=== PATIENT | female | born 1940 | race Caucasian/White ===

== ENCOUNTER 2016-10-15 14:06 | Emergency (ER) | payer MEDICARE ==
[~2016-10-15] VITALS: Ht 154.9 cm; Wt 91.8 kg
[~2016-10-15 14:06] MED LIST: CALC600T12 PO; CHOL100045 PO; DIGO125T73 PO; FENT1PAT6 TOPICAL; FENT1PAT7 TOPICAL; FURO40TA4 PO; MAGN250T29 PO; MULT-1018 PO; POTA-62 PO; TRAZ-118 PO; VENL-57 PO; VERA360C2 PO; WARF5TAB7 PO
[2016-10-15 14:10] VITALS: BP 146/77; PULSE 75; RESP 22; O2SAT 97
--- NOTE | 2016-10-15 15:11 | DRSVH ---
PROCEDURE: X-RAY CHEST, TWO VIEWS ([id number]) INDICATIONS: dyspnea TECHNIQUE: 2 views of the chest were acquired. COMPARISON: [facility], CT, CT CHEST ABD PELVIS W CON, 04/26/2016, 11:38. [facility], CR, XR CHEST 1VW (PORTABLE), 10/24/2015, 18:44. FINDINGS: Surgical changes and devices: The cardiac pacer/defibrillator apparatus is evident overlying the left chest, grossly unchanged. Median sternotomy changes are again noted. A gastric band is evident at the gastroesophageal junction. Lungs and pleura: The aeration of the lungs are similar to the previous exam. There is no focal cons olidation, effusion, or pneumothorax. There may be minimal scar versus atelectasis within the lung b ases. Soft tissue prominence along the right heart border is similar to the prior chest radiograph a nd likely chronic. Mediastinum: Mediastinal contours are normal. Heart size is normal. Bones and chest wall: No suspicious bony abnormalities. Soft tissues appear unremarkable. IMPRESSION: Stable chest. No acute cardiopulmonary process is evident. Dictated by: Estevan Doan M.D. on 10/15/2016 at 14:08 Approved by: Estevan Doan M.D. on 10/15/2016 at 14:10
--- NOTE | 2016-10-15 15:21 | ED.REPORT ---
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 Associated symptoms include bilateral edema in the feet, lightheadedness, nocturnal diaphoresis and one episode of left sided, nonradiating chest pain. The episode of chest pain began last night lasted approx. 25 seconds. Her pain was relieved by movement and exacerbated when she laid down. Patient reports similar symptoms during her previous episode of pneumonia. Her diet is currently "salt-free" and her weight has been stable for the past few months according to family. She denies productive cough, wheezing, fever, nausea or rhinorrhea. Patient took 4 doses of Lasix over the past 2 days with little relief. She typically takes 1 dose per day. Her medication list also includes 45 mg of furosemide and a pentanol patch for chronic hip pain. Nursing Notes Stated Complaint: SOB,SWELLING Chief Complaint: Respiratory Complaints Nursing Notes Reviewed: Yes Allergies: Coded Allergies: Opioids - Morphine Analogues (Verified Allergy, Severe, Shortness of Breath, 10/24/15) Penicillins (Verified Allergy, Severe, Anaphylaxis, 10/24/15) codeine (Verified Allergy, Severe, Shortness of Breath, 10/24/15) morphine (Verified Allergy, Severe, Shortness of Breath, 10/24/15) Scheduled Calcium Carbonate (Calcium) 600 Mg Tablet 600 MG PO DAILY Cholecalciferol (Vitamin D3) (Vitamin D) 1,000 Unit Capsule 3,000 UNIT PO DAILY Digoxin (Digoxin) 125 Mcg Tablet 125 MCG PO DAILY Fentanyl 12.5 mcg/hr Patch (Fentanyl 12.5 mcg/hr Patch) 1 Each Patch.td72 12.5 MCG TOPICAL every other day Fentanyl 25 mcg/hr Patch (Fentanyl 25 mcg/hr Patch) 1 Each Patch.td72 25 MCG TOPICAL every other day Furosemide (Furosemide) 40 Mg Tablet 40 MG PO DAILY Magnesium Oxide (Magnesium) 250 Mg Tablet 250 MG PO DAILY Multivitamin (Multi Vitamin Daily) 1 Each Tablet 1 EACH PO DAILY Potassium Chloride ER (Potassium Chloride ER) 20 Meq Tablet.er 20 MEQ PO DAILY TAKE WITH FOOD Trazodone (Trazodone) 100 Mg Tablet 100 MG PO HS Verapamil ER (Verapamil ER) 360 Mg Cap24h.pel 360 MG PO DAILY Warfarin Sodium (Warfarin Sodium) 5 Mg Tablet 5 MG PO DAILY Miscellaneous Medications Venlafaxine ER (Venlafaxine ER) 37.5 Mg Cap.er.24h 37.5 MG PO 2 capsules daily General Time Seen by MD: 15:18 Chief Complaint Shortness of breath Hx Obtained From: Patient Arrived By: Walk-in Sudden in Onset?: No Onset Occurred: 4 days ago Symptom Duration: Since onset Location: : Chest left Quality: Painful Radiation: : Does not radiate Severity: Current: No pain currently Severity: Maximum: Moderate Associated with: Reports: Chest pain (Left sided ), Diaphoresis (Night sweats) , Leg swelling, Denies: Cough, Fever, Nausea Pertinent Negative: Pt denies other symptoms Exacerbated by: Lying flat Relieved by: Sitting up Recent Healthcare: No recent hospitalization, Recent doctor visit Risk Factors CAD Risk Stratification Risk factors reviewed PE Risk Stratification Risk factors reviewed Past Medical History Past Medical History Notes: PCP: Dr. Jadiel English Past Medical History 1. Obesity 2. CHF 3. Bicuspid Aortic valve s/p Aortic Valve replacement 4. Chronic atrial fibrillation 5. Hypertension 6. 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 Diabetes mellitus 8. Depression 9. Arthritis, Multiple Sites 10. Memory loss 11. Shingles outbreak 12. Scarlet fever as child Past Surgical History 1. Aortic valve replacement 2. Lap band 3. Laparoscopic gastric banding 4. Hysterectomy 5. Cholecystectomy 6. Appendectomy 7. Ablation procedure for atrial fibrillation 8. Dual chamber pacemaker [employer] implant 9. Hip and knee replacement 10. Bilateral carpal tunnel Smoking History Former Smoker, Never Smoker Social History Alcohol Use: Denies alcohol use Drug Use: Denies drug use Other Social History: Good social support, Local resident Ambulatory Status Independent Review of Systems Constitutional: Denies: Chills, Fever Ears / Nose / Throat: Denies: Nasal congestion Respiratory: Reports: Shortness of breath, Denies: Prod cough, clear, Wheezing Cardiovascular: Reports: Chest pain (Left sided chest pain) Skin: Reports Diaphoresis (Nocturnal), Reports Swelling (Bilateral edema in the feet) Complete sys rev & neg: except as marked. GI: Denies: Nausea, Vomiting Neurologic: Reports: Lightheaded Physical Exam Initial Vital Signs Vital Signs (First) Date Time Temp Pulse Resp B/P Pulse Ox O2 Delivery O2 Flow Rate FiO2 10/15/16 14:10 37.2 75 22 146/77 97 Room Air Initial VS: Reviewed Head / Eyes: Atraumatic, Normocephalic, PERRL Skin: Warm, Dry, No cyanosis Neurologic: Alert, Oriented, Nonfocal Psychiatric: Mood/affect normal, Behavior normal, Normal thought content General/Constitutional: Awake, Alert, No acute distress Neck: Atraumatic, Supple Respiratory / Chest: Atraumatic, Breath sounds NL, Breath sounds = bilat, No respiratory distress Good air movement Cardiovascular: Heart rate NL, Regular rhythm Heart Rate / Rhythm: Positive: Irreg irregular rhythm Heart Sounds / Murmur: Positive: Click present (Mechanical valve), Systolic murmur present.. (Mechanical valve click) Lower Ext Edema: Positive: Bilateral 2+ (Feet), Pitting Lower Extremity / Pelvis / MS: Atraumatic, Neurologic intact, Vascular intact Upper Extremity / MS: Atraumatic, Neurologic intact, Vascular intact Interpretation & Diagnostics Lab Results Interpretation Result Diagram: 10/15/16 1522 10/15/16 1522 Test 10/15/16 15:22 White Blood Count 4.2th/mm3 (3.8-10.1) Red Blood Count 3.85mil/mm3 (3.90-5.20) Hemoglobin 11.6g/dL (12.0-15.6) Hematocrit 34.9% (35.0-46.0) Mean Corpuscular Volume 90.6fL (81-100) Mean Corpuscular Hemoglobin 30.1pg (27.0-35.0) Mean Corpuscular Hemoglobin Concent 33.2% (32.0-37.0) Red Cell Distribution Width 15.1% (12.3-15.4) Platelet Count 76bil/L (150-400) Neutrophils (%) (Auto) 60.4% (40-74) Lymphocytes (%) (Auto) 23.2% (14-46) Monocytes (%) (Auto) 15.0% (4-12) Eosinophils (%) (Auto) 0.2% (0-5) Basophils (%) (Auto) 0.2% (0-3) Prothrombin Time 35.5sec (8.1-12.5) Prothromb Time International Ratio 3.24ratio Sodium Level 138mEq/L (134-144) Potassium Level 4.2mEq/L (3.5-5.2) Chloride Level 97mEq/L (97-108) Carbon Dioxide Level 25mmol/L (18-29) Blood Urea Nitrogen 17mg/dL (8-27) Creatinine 0.59mg/dL (0.57-1.00) Estimat Glomerular Filtration Rate 142mL/min (>59) Glucose Level 253mg/dL (60-99) Lactic Acid Level 2.1mmol/L (0.4-2.0) Calcium Level 9.5mg/dL (8.5-10.1) Total Bilirubin 0.5mg/dL (0.0-1.2) Aspartate Amino Transf (AST/SGOT) 14U/L (0-50) Alanine Aminotransferase (ALT/SGPT) 10U/L (0-32) Alkaline Phosphatase 119U/L (25-165) Troponin T < 0.010ug/L (0.0-0.011) Pro-B-Type Natriuretic Peptide 488.3pg/mL (0-738) Total Protein 7.0g/dL (6.4-8.4) Albumin 4.2g/dL (3.4-5.0) Digoxin Level 0.8nG/mL (0.9-2.0) ECG Interpretation ECG Interpretation: A-fib with ventricular paced complexes No acute ST changes Rate 75 Time: 15:02 Interpreted by: ED physician Normal ECG Interpretation: No change from prior ECGs (12/13/15) X-Ray Chest Interpretation Chest Xray Interpretation: IMPRESSION: Stable chest. No acute cardiopulmonary process is evident. Dictated by: Estevan Doan M.D. on 10/15/2016 at 14:08 Interpretation / Wet Read by: Interpret - Radiologist Re-Eval/Medical Decision Re-Evaluation/Progress : Time of Eval: 16:38 Patient Status: Condition improved Re-Evaluation/Progress Note: Patient is rechecked. She is informed of her reassuring lab results, chest X-ray and diagnosis. She understands and agrees with the treatment plan to up her current furosemide dose. Counseled Regarding: Diagnosis, Lab results, Need for follow-up, When/why to return to ED Discharge & Departure Impression: Primary Impression: CHF (congestive heart failure) Congestive heart failure type: unspecified congestive heart failure type Congestive heart failure chronicity: acute on chronic Qualified Code: I50.9 - Heart failure, unspecified Disposition: Home Discharge Condition All VS Reviewed: Yes Condition: Improved Patient Instructions: Congestive Heart Failure (ED) Additional Instructions: Thank you for trusting us with your care this afternoon. Your emergency department evaluation today included interview, examination, lab work, EKG, and Chest X-ray. Your results are reassuring that there is no dangerous cause for concern at this time. Your X-ray did not show any evidence of pneumonia at this time. It appears that you have some increased fluid retention and we will give a single IV dose of furosemide here tonight. Patient tomorrow for the next 2 days take furosemide 80 mg daily. Double up on potassium supplement at the same time for those 2 days. Take an extra potassium tonight when you get home also. You should follow-up with your primary doctor in the next week for a recheck. You should return to the ED immediately if you develop shortness of breath, dizziness, fever, chills, chest pain or any other concerning signs or symptoms. Thank you for letting us partake in your care today. Referrals: Jadiel English MD (PCP) Scribe Attestation Portions of this note were transcribed by Katrina Luna. I, Dr. Hdez personally performed the history, physical exam and medical decision-making; I reviewed and confirmed the accuracy of the information in the transcribed note. Signed by: Khalif Rodrigues, 10/15/16 1249. copies to: Jadiel English MD, Donald L MD Oct 15, 2016 15:21 KATRINA LUNA Oct 15, 2016 15:29
[2016-10-15 15:31] LABS: BASOPHILS % (AUTO) 0.2 % (0-3); EOSINOPHILS % (AUTO) 0.2 % (0-5); Mean Corpuscular Hemoglobin 30.1 pg (27.0-35.0); Mean Corpuscular Volume 90.6 fL (81-100); NEUTROPHILS % (AUTO) 60.4 % (40-74); Platelet Count 76 bil/L (150-400)
[2016-10-15 15:50] LABS: INR 3.24 ratio
[2016-10-15 16:07] LABS: TROPONIN T < 0.010 ug/L (0.0-0.011)
[2016-10-15] MEDS ORDERED: Furosemide 10 mg/mL 4 mL Inj IVPUSH ONE (16:45)
[2016-10-15 17:25] VITALS: BP 146/48; PULSE 70; RESP 18; O2SAT 97
[2016-12-23] MEDS ORDERED: WARF2.5T82 PO (11:26)
== END 2016-10-15 17:28 | disposition home or self-care (01) ==
LOC: SED 14:06
DX: I11.0 Hypertensive heart disease with heart failure (principal); I50.9 Heart failure, unspecified; E11.59 Type 2 diabetes mellitus with other circulatory complications; I48.91 Unspecified atrial fibrillation; Z79.01 Long term (current) use of anticoagulants; Z87.891 Personal history of nicotine dependence; Z88.0 Allergy status to penicillin; Z88.5 Allergy status to narcotic agent; Z88.8 Allergy status to other drugs, medicaments and biological substances
CPT/HCPCS: 36415; 71020; 80053; 80162; 83605; 83880; 84484; 85025; 85610; 87040; 87077; 87186; 93005; 96374; 99285; J1940

== ENCOUNTER 2016-10-24 11:11 | Emergency (ER) | payer MEDICARE ==
[2016-10-24] MEDS ORDERED: 0.9% Sodium Chloride 1,000 ML IV ONE (11:19)
[2016-10-24] MEDS ORDERED: 0.9% Sodium Chloride 1,000 ML IV PRN (11:19)
--- NOTE | 2016-10-24 11:19 | ED.REPORT ---
HPI-Neurologic Deficit Date of Service Oct 24, 2016 ED Provider: Dr. Newby Pt is a 76 year old female with a hx of CHF, afib, pacemaker and HTN on Coumadin presenting to the ED complaining of transient confusion at 1015 today. Pt reports dizziness and nausea currently. The family reports confusion, diaphoresis, repetitive questioning and short term memory loss. Denies any facial droop, paralysis, palpitations, chest pain, SOB, vision changes, focal weakness, numbness, speech changes, trouble walking. Her daughter who accompanies her here today is a nurse, and denies any other signs of stroke. Pt was seen in the ER just over a week ago for SOB. Nursing Notes Stated Complaint: SWEATING/CONFUSION Chief Complaint: Confusion Nursing Notes Reviewed: Yes Allergies: Coded Allergies: Opioids - Morphine Analogues (Verified Allergy, Severe, Shortness of Breath, 10/24/15) Penicillins (Verified Allergy, Severe, Anaphylaxis, 10/24/15) codeine (Verified Allergy, Severe, Shortness of Breath, 10/24/15) morphine (Verified Allergy, Severe, Shortness of Breath, 10/24/15) Scheduled Calcium Carbonate (Calcium) 600 Mg Tablet 600 MG PO DAILY Cholecalciferol (Vitamin D3) (Vitamin D) 1,000 Unit Capsule 3,000 UNIT PO DAILY Digoxin (Digoxin) 125 Mcg Tablet 125 MCG PO DAILY Fentanyl 12.5 mcg/hr Patch (Fentanyl 12.5 mcg/hr Patch) 1 Each Patch.td72 12.5 MCG TOPICAL every other day Fentanyl 25 mcg/hr Patch (Fentanyl 25 mcg/hr Patch) 1 Each Patch.td72 25 MCG TOPICAL every other day Furosemide (Furosemide) 40 Mg Tablet 40 MG PO DAILY Magnesium Oxide (Magnesium) 250 Mg Tablet 250 MG PO DAILY Multivitamin (Multi Vitamin Daily) 1 Each Tablet 1 EACH PO DAILY Potassium Chloride ER (Potassium Chloride ER) 20 Meq Tablet.er 20 MEQ PO DAILY TAKE WITH FOOD Trazodone (Trazodone) 100 Mg Tablet 100 MG PO HS Verapamil ER (Verapamil ER) 360 Mg Cap24h.pel 360 MG PO DAILY Warfarin Sodium (Warfarin Sodium) 5 Mg Tablet 5 MG PO DAILY Miscellaneous Medications Venlafaxine ER (Venlafaxine ER) 37.5 Mg Cap.er.24h 37.5 MG PO 2 capsules daily General Time Seen by Provider: 11:19 Chief Complaint Other (Confusion) Hx Obtained From: Son, Daughter, EMS Arrived By: Ambulance Sudden in Onset?: Yes Onset Occurred: 1 - 4 hours ago Symptom Duration: Since onset Progression Since Onset: Constant Severity: Current: No pain currently Severity: Maximum: No pain Recent Healthcare: No recent hospitalization, Recent doctor visit Similar Sx Previous: No Risk Factors NIH Stroke Scale Level of Consciousness: Alert and responsive (0) Ask Month & Age: Both questions right (0) 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 (0) Horizontal EO Movements: None (0) Visual Colon: No visual loss (0) Facial Palsy: Normal symmetry (0) Right Arm Motor Drift (10s): No drift 10 sec (0) Left Arm Motor Drift (10s): No drift 10 sec (0) Right Leg Motor Drift (5s): No drift 5 sec (0) Left Leg Motor Drift (5s): No drift 5 sec (0) Limb Ataxia FNF/Heel-Zuniga: No ataxia (0) Sensation (Arms/Legs/Face): No sensory loss (0) Language Aphasia: No aphasia, normal (0) Dysarthria: No dysarthria, normal (0) Extinction/Inattention: No exctinct/inattent (0) NIHSS Score: 0 Time NIHSS Performed: 11:38 Past Medical History Past Medical History Notes: PCP: Dr. Jadiel English Past Medical History 1. Obesity 2. CHF 3. Bicuspid Aortic valve s/p Aortic Valve replacement 4. Chronic atrial fibrillation 5. Hypertension 6. 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 Diabetes mellitus 8. Depression 9. Arthritis, Multiple Sites 10. Memory loss 11. Shingles outbreak 12. Scarlet fever as child Past Surgical History 1. Aortic valve replacement 2. Lap band 3. Laparoscopic gastric banding 4. Hysterectomy 5. Cholecystectomy 6. Appendectomy 7. Ablation procedure for atrial fibrillation 8. Dual chamber pacemaker [employer] implant 9. Hip and knee replacement 10. Bilateral carpal tunnel Smoking History Former Smoker, Never Smoker Social History Alcohol Use: Denies alcohol use Drug Use: Denies drug use Other Social History: Good social support, Local resident Ambulatory Status Independent Review of Systems Cardiovascular: Denies: Chest pain GI: Reports: Nausea Skin: Reports Diaphoresis Neurologic: Reports: Confusion, Dizziness, Denies: Focal weakness, Numbness, Problem walking, Slurred speech, Vision change Complete sys rev & neg: except as marked. Physical Exam Initial Vital Signs Vital Signs (First) Date Time Temp Pulse Resp B/P Pulse Ox O2 Delivery O2 Flow Rate FiO2 10/24/16 11:23 35.8 98 12 124/106 100 Room Air Initial VS: Reviewed ENT: Mucous membranes moist, Conjunctiva normal, No scleral icterus Neck: Supple, Non-tender, Full range of motion Abdomen / GI: Soft, Non-tender, No guarding, No rebound, No distention Extremities: Vascular intact, Neuro intact, No swelling, No tenderness Skin: Warm, Dry, No cyanosis Psychiatric: Mood/affect normal, Behavior normal, Normal thought content General/Constitutional: Awake, Alert, No acute distress, Well appearing Head / Eyes: Atraumatic, Normocephalic, PERRL, EOMI, No nystagmus Respiratory / Chest: Breath sounds NL, Breath sounds = bilat, No respiratory distress, No rales, No rhonchi, No wheezing Cardiovascular: Heart rate NL, Heart sounds NL, Peripheral circulation NL Heart Rate / Rhythm: Positive: Irreg irregular rhythm Neurologic: Oriented X3, Speech NL, No motor deficits, No sensory deficits, CN II - XII intact, Reflexes equal bilat, Cerebellar NL Lower Extremity / Pelvis / MS: Atraumatic, No deformity, Neurologic intact, Vascular intact +1 LE edema Interpretation & Diagnostics Interpretation & Diagnostics: Urine negative for signs of infection. Lab Results Interpretation Result Diagram: 10/24/16 1140 10/24/16 1319 Test 10/24/16 11:40 10/24/16 11:52 10/24/16 13:19 10/24/16 14:23 White Blood Count 3.8th/mm3 (3.8-10.1) Red Blood Count 4.49mil/mm3 (3.90-5.20) Hemoglobin 13.4g/dL (12.0-15.6) Hematocrit 39.9% (35.0-46.0) Mean Corpuscular Volume 88.9fL (81-100) Mean Corpuscular Hemoglobin 29.8pg (27.0-35.0) Mean Corpuscular Hemoglobin Concent 33.6% (32.0-37.0) Red Cell Distribution Width 14.7% (12.3-15.4) Platelet Count 134bil/L (150-400) Neutrophils (%) (Auto) 49.8% (40-74) Lymphocytes (%) (Auto) 29.6% (14-46) Monocytes (%) (Auto) 17.7% (4-12) Eosinophils (%) (Auto) 1.6% (0-5) Basophils (%) (Auto) 0.5% (0-3) Prothrombin Time 14.0sec (8.1-12.5) Prothromb Time International Ratio 1.30ratio Activated Partial Thromboplast Time 22.8sec (22.8-33.0) Hold Brown Top Tube Received (Received) Sodium Level 135mEq/L (134-144) Potassium Level 4.1mEq/L (3.5-5.2) Chloride Level 94mEq/L (97-108) Carbon Dioxide Level 24mmol/L (18-29) Blood Urea Nitrogen 21mg/dL (8-27) Creatinine 0.65mg/dL (0.57-1.00) Estimat Glomerular Filtration Rate 127mL/min (>59) Glucose Level 226mg/dL (60-99) Calcium Level 9.4mg/dL (8.5-10.1) Total Bilirubin 0.6mg/dL (0.0-1.2) Aspartate Amino Transf (AST/SGOT) 19U/L (0-50) Alanine Aminotransferase (ALT/SGPT) 12U/L (0-32) Alkaline Phosphatase 113U/L (25-165) Troponin T < 0.010ug/L (0.0-0.011) Pro-B-Type Natriuretic Peptide 698.0pg/mL (0-738) Total Protein 6.6g/dL (6.4-8.4) Albumin 3.9g/dL (3.4-5.0) Urine Color Yellow (YELLOW) Urine Appearance Clear (CLEAR,HAZY) Urine pH 6.5 (5.0-8.0) Urine Specific [place] 1.020 (1.003-1.035) Urine Protein Tracemg/dL (NEG,TRACE) Urine Glucose (UA) Negativemg/dL (NEGATIVE) Urine Ketones Negativemg/dL (NEGATIVE) Urine Occult Blood Negative (NEGATIVE) Urine Nitrite Negative (NEGATIVE) Urine Bilirubin Negative (NEGATIVE) Urine Urobilinogen Normalmg/dL (NORMAL) Urine Leukocyte Esterase Negative (NEGATIVE) Urine RBC 0-2/hpf (0-2) Urine WBC 0-5/hpf (0-5) Urine Epithelial Cells Many/hpf (NONE-MOD) Urine Crystals None seen (NONE SEEN) Urine Bacteria Few/hpf (NONE-FEW) Urine Hyaline Casts None/lpf (NONE) Urine Granular Casts None seen (NONE SEEN) Urine Waxy Casts None seen (NONE SEEN) Urine Red Blood Cell Casts None seen (NONE SEEN) Urine White Blood Cell Casts None seen (NONE SEEN) Urine Mucus None seen (None Seen) Urine Trichomonas None seen (NONE SEEN) Urine Yeast None (NONE SEEN) Urinalysis Comment None Urine Culture Reflexed Not indicated ECG Interpretation ECG Interpretation: Afib. IVCD. No ischemic changes. Time: 11:34 Interpreted by: ED physician Normal ECG Interpretation: Normal rate (94) X-Ray Chest Interpretation Chest Xray Interpretation: IMPRESSION: No acute cardiac pulmonary disease. Dictated by: Moriah Macias M.D. on 10/24/2016 at 12:22 View: Portable, 1 view Interpretation / Wet Read by: Interpret - Radiologist CT Head Interpretation CT BRAIN (TPA): IMPRESSION: 1. No acute intracranial abnormalities. 2. Cerebral volume loss and chronic microvascular ischemic changes. This study fulfills neurological imaging criteria for inclusion or exclusion of acute stroke therapies based on available published neurological guidelines. Dictated by: Moriah Macias M.D. on 10/24/2016 at 11:34 Interpretation / Wet Read by: Interpret - Radiologist Re-Eval/Medical Decision Med Decision/Clinical Course Overall this is a alarming episode of transient confusion, it does not quite fit the clinical picture of presyncope and there are no localizing symptoms to suggest CVA or TIA. The patient's daughter is a nurse and stated that there were no focal neuro deficits simply change in mental status. Her labs are reassuring, she is completely returned to baseline. Of note her INR is mildly low she may wear this and will increase her dose tonight and follow-up with the warfarin clinic. The patient wishes to go home, it is Easter Tuesday, she was planning on being with her family. We did discuss that some patients are admitted for symptoms like this however she felt comfortable going home and following up. She will be discharged to the care of family who will bring her back if there are any recurrent symptoms. Return and follow-up precautions given. Re-Evaluation/Progress #1: Time of Eval: 11:34 Patient Status: Condition improved Re-Evaluation/Progress Note: Pt back from CT. Blood sugar is 237. Re-Evaluation/Progress #2: Time of Eval: 11:50 Patient Status: Condition improved Re-Evaluation/Progress Note: Discussed CT results with the pt and family. Re-Evaluation/Progress #3: Time of Eval: 13:43 Patient Status: Condition improved Re-Evaluation/Progress Note: Pt able to stand and move to a wheelchair on her own. Discussed lab results and plan for discharge. Re-Evaluation/Progress #4: Time of Eval: 14:27 Patient Status: Condition improved Re-Evaluation/Progress Note: Discussed urine results and plan for discharge. Pt understands and agrees. Counseled Regarding: Diagnosis, Lab results, Need for follow-up, When/why to return to ED Discharge & Departure Impression: Primary Impression: Transient confusion Disposition: Home Discharge Condition All VS Reviewed: Yes Condition: Improved Additional Instructions: Overall there are no signs or symptoms of a stroke while in the ED and this has all seemed to resolve. This is definitely concerning, however I do not think you have to stay in the hospital the have this followed up. Call both your regular doctor and/or fast food shift lead in the morning for follow-up. Increase your Coumadin dosage to 1.5 times your normal dose of Coumadin since your INR was low today. Call the Coumadin clinic in the morning to follow this up in the next 2 days as well as help to readjust your Coumadin level. Return to the ER if you develop any new or worsening symptoms, or even if these symptoms return. Referrals: Jadiel English MD (PCP) [place] Attestation Portions of this note were transcribed by Nandini Coleman. I, Dr. Newby personally performed the history, physical exam and medical decision-making; I reviewed and confirmed the accuracy of the information in the transcribed note. Signed by: Khalif Hope, 10/24/2016 at 1440. copies to: Jadiel English MD, Timothy Alpa HEWITT Oct 24, 2016 11:18 NANDINI COLEMAN Oct 24, 2016 11:25
[2016-10-24] MEDS ORDERED: Alteplase Dose Per Pharmacist XX SCH (11:20)
[2016-10-24 11:23] VITALS: BP 124/106; PULSE 98; RESP 12; O2SAT 100
--- NOTE | 2016-10-24 11:37 | DRSVH ---
PROCEDURE: CT BRAIN (TPA) ([id number]) INDICATIONS: Stroke TECHNIQUE: Noncontrast 4.5 mm thick angled axial sections acquired from the foramen magnum to the vertex, with c oronal reformats. COMPARISON: None. FINDINGS: Image quality: Excellent. CSF spaces: Basal cisterns are patent. No extra-axial fluid collections. The ventricles are symmet melody in size and shape. Brain: No intracranial bleeds or masses. There is cerebral volume loss for age, with resultant vent ricular and sulcal prominence. There are periventricular and deep white matter chronic small vessel ischemic changes. There is intracranial internal carotid artery atherosclerosis. Skull and face: Calvarium and visualized facial bones appear intact, without suspicious lesions. Sinuses: Visualized sinuses and mastoids are clear. IMPRESSION: 1. No acute intracranial abnormalities. 2. Cerebral volume loss and chronic microvascular ischemic changes. This study fulfills neurological imaging criteria for inclusion or exclusion of acute stroke therapie s based on available published neurological guidelines. Dictated by: Moriah Macias M.D. on 10/24/2016 at 11:34 Approved by: Moriah Macias M.D. on 10/24/2016 at 11:36
[2016-10-24 11:45] VITALS: BP 133/92; PULSE 97; RESP 16; O2SAT 92
[2016-10-24 11:56] LABS: BASOPHILS % (AUTO) 0.5 % (0-3); EOSINOPHILS % (AUTO) 1.6 % (0-5); MONOCYTES % (AUTO) 17.7 % (4-12); Mean Corpuscular Hemoglobin 29.8 pg (27.0-35.0); Mean Corpuscular Volume 88.9 fL (81-100); NEUTROPHILS % (AUTO) 49.8 % (40-74); Platelet Count 134 bil/L (150-400)
[2016-10-24 12:21] LABS: INR 1.3 ratio
--- NOTE | 2016-10-24 12:24 | DRSVH ---
PROCEDURE: X-RAY CHEST ONE VIEW, PORTABLE ([id number]) INDICATIONS: CERBROVASCULAR ACCIDENT TECHNIQUE: One view of the chest was acquired. COMPARISON: [facility], CR, XR CHEST 1VW (PORTABLE), 10/24/2015, 18:44. FINDINGS: Surgical changes and devices: There is a cardiac pacemaker. Sternotomy and CABG. Lungs and pleura: No pleural effusions or pneumothorax. Lungs are clear. Mediastinum: Mediastinal contours appear normal. Heart size is normal. Bones and chest wall: No suspicious bony lesions. Overlying soft tissues appear unremarkable. IMPRESSION: No acute cardiac pulmonary disease. Dictated by: Moriah Macias M.D. on 10/24/2016 at 12:22 Approved by: Moriah Macias M.D. on 10/24/2016 at 12:23
--- NOTE | 2016-10-24 12:27 | NUR ---
Speech therapy order received for a swallow evaluation. MD then gave verbal instructions to cancel order. Please re-order ST if warranted.
[2016-10-24 13:53] LABS: TROPONIN T < 0.010 ug/L (0.0-0.011)
[2016-10-24 14:33] LABS: APPEARANCE,URINE CLEAR (CLEAR,HAZY); COLOR,URINE YELLOW (YELLOW); OCCULT BLOOD,URINE NEGATIVE (NEGATIVE); PH,URINE 6.5 (5.0-8.0); UROBILINOGEN,URINE NORMAL (NORMAL)
[2016-12-23] MEDS ORDERED: WARF2.5T82 PO (11:26)
== END 2016-10-24 14:48 | disposition home or self-care (01) ==
LOC: SED 11:11
DX: R41.0 Disorientation, unspecified (principal); I11.0 Hypertensive heart disease with heart failure; I48.91 Unspecified atrial fibrillation; E11.9 Type 2 diabetes mellitus without complications; Z79.01 Long term (current) use of anticoagulants; Z87.891 Personal history of nicotine dependence; Z88.0 Allergy status to penicillin; Z88.5 Allergy status to narcotic agent; Z88.8 Allergy status to other drugs, medicaments and biological substances